=== PATIENT | male | born 1985 | race Caucasian/White ===

== ENCOUNTER 2021-05-24 09:58 | Emergency (ER) | payer OTHER ==
[2021-05-24 10:41] LABS: BASOPHIL 1.1 % (0-2); EOSINOPHIL 4.7 % (0-5); HCT 48.6 % (42.0-52.0); HGB 16.1 g/dl (13.2-18.0); MCH 28.9 pg (25.0-31.0); MCHC 33.1 g/dL (32.0-36.0); MCV 87.1 fL (78.0-100.0); MONOCYTE 9.3 % (0-12); MPV 10.5 fL (6.0-9.5); NEUTROPHIL 53.4 % (41-80); NRBC 0; PLT 223 K/uL (150-400); RBC 5.58 M/uL (4.70-6.00); RDW 12.1 % (11.5-14.0); WBC 6.6 K/uL (4.0-10.5)
[2021-05-24 10:50] LABS: BILIRUBIN - TOTAL 0.4 mg/dL (0.2-1.0); CREATININE 1.07 mg/dL (0.67-1.17); GLOBULIN (CALCULATION) 3.8 g/dL; POTASSIUM 3.7 mmol/L (3.5-5.1); TOTAL PROTEIN 7.8 g/dL (6.4-8.2)
== END 2021-05-24 12:28 | disposition home or self-care (01) ==
LOC: FER 09:58
PROVIDERS: Emergency Medicine
DX: K76.0 Fatty (change of) liver, not elsewhere classified (principal)
CPT/HCPCS: 36415; 76705; 80053; 83690; 85025